=== PATIENT | female | born 1990 | race Hispanic/Latino ===

== ENCOUNTER 2019-04-12 22:42 | Emergency (ER) | payer MEDICAID ==
[2019-04-12] MEDS ORDERED: SODIUM CHLORIDE 0.9% 1000ML 1,000 ML IV ONE (23:16)
[2019-04-12 23:32] LABS: BASOPHILS % (AUTO) 0.7 % (0.0-5.0); EOSINOPHILS % (AUTO) 0.4 % (0.0-8.0); HEMATOCRIT 34.1 % (36-48); LYMPHOCYTES % (AUTO) 27.5 % (21.0-51.0); MEAN CORPUSCULAR HEMOGLOBIN 26.3 pg (27.0-33.0); MEAN CORPUSCULAR HGB CONC 33.3 g/dL (32.0-36.0); MONOCYTES % (AUTO) 4.3 % (3.0-13.0); NEUTROPHILS % (AUTO) 67.1 % (40.0-77.0); PLATELET COUNT (AUTO) 288 K/uL (130-400); RED BLOOD CELL COUNT(AUTO) 4.31 MIL/uL (4.00-5.50); RED CELL DISTRIBUTION WIDTH 15.7 % (11.0-15.5); WHITE BLOOD COUNT (AUTO) 13.9 K/uL (4.8-10.8)
[2019-04-12 23:36] LABS: APPEARANCE,URINE Clear (CLEAR); BILIRUBIN,URINE Negative (NEGATIVE); COLOR,URINE Yellow (YELLOW); GLUCOSE, URINE (UA) Negative (NEGATIVE); KETONES,URINE Negative (NEGATIVE); LEUKOCYTE ESTERASE ,URINE Trace (NEGATIVE); NITRATE,URINE Negative (NEGATIVE); OCCULT BLOOD,URINE Negative (NEGATIVE); PH,URINE 6.5 (5.0-8.0); PROTEIN,URINE Negative (NEGATIVE); UROBILINOGEN,URINE 0.2 mg/dL (0.2-1.0)
[2019-04-12 23:48] LABS: CREATININE 0.6 mg/dL (0.5-1.5); POTASSIUM 4.4 mmol/L (3.5-5.1)
[2019-04-12 23:53] LABS: RBC,URINE 0-1 /HPF (0-1)
[2019-04-12 23:54] LABS: BACTERIA,URINE Rare /HPF (None Seen); MUCUS,URINE Few LPF (None Seen); SQUAMOUS EPITHELIAL CELL,UR 0-2 /HPF (0-2)
== END 2019-04-13 00:52 | disposition home or self-care (01) ==
LOC: EDH 22:42
DX: O20.0 Threatened abortion (principal); Z3A.08 8 weeks gestation of pregnancy
CPT/HCPCS: 36415; 76801; 80048; 81001; 84702; 85025; 86900; 86901; 87088; 99285; J7030

== ENCOUNTER 2019-07-20 13:56 | Observation (INO) | payer MEDICAID ==
[2019-07-20 15:29] LABS: APPEARANCE,URINE Clear (CLEAR); BILIRUBIN,URINE Negative (NEGATIVE); COLOR,URINE Yellow (YELLOW); GLUCOSE, URINE (UA) Negative (NEGATIVE); KETONES,URINE Negative (NEGATIVE); LEUKOCYTE ESTERASE ,URINE Small (NEGATIVE); NITRATE,URINE Negative (NEGATIVE); OCCULT BLOOD,URINE Negative (NEGATIVE); PROTEIN,URINE Negative (NEGATIVE)
[2019-07-20 15:36] LABS: BACTERIA,URINE Few /HPF (None Seen); MUCUS,URINE Rare LPF (None Seen); RBC,URINE 0-1 /HPF (0-1)
== END 2019-07-20 18:14 | disposition home or self-care (01) ==
LOC: EDH 13:56 → LDH 13:57
PROVIDERS: ADMIT Obstetrics & Gynecology; ATTEND Obstetrics & Gynecology
DX: O46.92 Antepartum hemorrhage, unspecified, second trimester (principal); O24.912 Unspecified diabetes mellitus in pregnancy, second trimester; Z87.891 Personal history of nicotine dependence; Z3A.22 22 weeks gestation of pregnancy
CPT/HCPCS: 76805; 81001; 82948; 99284; G0378 ×3

== ENCOUNTER 2019-11-04 11:35 | Inpatient (IN) | payer MEDICAID ==
[~2019-11-04] VITALS: Ht 165.1 cm; Wt 135.2 kg
[2019-11-04] MEDS: LACTATED RINGERS 1000ML 1,000 ML IV PRN ×3 (12:00→21:51)
[2019-11-04 12:53] LABS: MEAN CORPUSCULAR HEMOGLOBIN 26.3 pg (27.0-33.0); MEAN CORPUSCULAR HGB CONC 32.6 g/dL (32.0-36.0); MEAN CORPUSCULAR VOLUME 80.6 fL (79-99); PLATELET COUNT (AUTO) 250 K/uL (130-400); RED BLOOD CELL COUNT(AUTO) 4.34 MIL/uL (4.00-5.50); RED CELL DISTRIBUTION WIDTH 15.9 % (11.0-15.5); WHITE BLOOD COUNT (AUTO) 11.9 K/uL (4.8-10.8)
[2019-11-04 12:59] LABS: APPEARANCE,URINE Clear (CLEAR); BILIRUBIN,URINE Negative (NEGATIVE); COLOR,URINE Yellow (YELLOW); GLUCOSE, URINE (UA) Negative (NEGATIVE); KETONES,URINE Negative (NEGATIVE); LEUKOCYTE ESTERASE ,URINE Negative (NEGATIVE); NITRATE,URINE Negative (NEGATIVE); OCCULT BLOOD,URINE Negative (NEGATIVE); PROTEIN,URINE Negative (NEGATIVE); UROBILINOGEN,URINE 0.2 mg/dL (0.2-1.0)
[2019-11-04 13:00] LABS: CREATININE 0.8 mg/dL (0.5-1.5); INR 0.89 (0.85-1.15); PARTIAL THROMBOPLASTIN TIME 28.7 SEC (26.3-35.5); PROTHROMBIN TIME 9.7 SEC (9.6-11.6)
[2019-11-04 13:06] LABS: ALBUMIN 2.5 g/dL (3.5-5.0); BILIRUBIN,TOTAL 0.2 mg/dL (0.2-1.0); TOTAL PROTEIN, SERUM 7.5 g/dL (6.0-8.3); URIC ACID 4.2 mg/dL (2.6-7.2)
[2019-11-04] MEDS ORDERED: LACTATED RINGERS 500 ML 500 ML IV PRN (13:15)
[2019-11-04] MEDS ORDERED: MEPERIDINE-PF 50 MG/ML SYG IVP PRN (13:15)
[2019-11-04] MEDS ORDERED: EPHEDRINE SULFATE 50 MG/ML AMPULE IVP PRN (13:15)
[2019-11-04] MEDS ORDERED: NALOXONE HCL 0.4 MG/1 ML ML IV PRN (13:15)
[2019-11-04] MEDS ORDERED: PROMETHAZINE HCL 25 MG/ML 1ML AMPULE IM PRN (13:15)
[2019-11-04] MEDS: DINOPROSTONE 10 MG VAGINAL SUPP VG SCH (18:05)
[2019-11-05] MEDS: LACTATED RINGERS 1000ML 1,000 ML IV PRN (06:12)
[2019-11-05 08:10] LABS: HEPATITIS Bs ANTIGEN SCREEN P Negative (Negative)
[2019-11-05] MEDS ORDERED: LACTATED RINGERS 500 ML 500 ML IV PRN (09:15)
[2019-11-05] MEDS ORDERED: EPHEDRINE SULFATE 50 MG/ML AMPULE IVP PRN (09:15)
[2019-11-05] MEDS ORDERED: ROPIVACAINE 0.2% 100ML VIAL 100 ML EP SCH (09:15)
[2019-11-05] MEDS ORDERED: OXYTOCIN-LR 20 UNITS/1000 ML 1,000 ML IV SCH (11:00)
[2019-11-05] MEDS ORDERED: CALDOLOR 800MG+NS 250ML 250 ML IV PRN (16:15)
[2019-11-05] MEDS ORDERED: CEFAZOLIN SODIUM 1 GM VIAL IVP PRN (16:15)
[2019-11-05] MEDS ORDERED: CALDOLOR 800MG+NS 250ML 250 ML IV ONE (16:20)
[2019-11-05] MEDS ORDERED: CEFAZOLIN SODIUM 1 GM VIAL ONE (16:20)
[2019-11-05] MEDS ORDERED: DURAMORPH PF1 MG/ML 10ML AMP IV ONE (16:21)
[2019-11-05] MEDS ORDERED: EPINEPHRINE 1 MG/ML AMPULE ONE (16:23)
[2019-11-05] MEDS ORDERED: OXYTOCIN 10 USP UNITS/ML ONE (16:24)
[2019-11-05] MEDS ORDERED: GLYCOPYRROLATE 1 MG/5 ML SYRINGE ONE (16:49)
[2019-11-05] MEDS ORDERED: ONDANSETRON HCL 4 MG/2 ML VIAL ONE (16:57)
[2019-11-05] MEDS ORDERED: MEPERIDINE-PF 25 MG/ML SYG ONE (17:39)
[2019-11-05] MEDS ORDERED: PROMETHAZINE HCL 25 MG/ML 1ML AMPULE IM PRN (18:45)
[2019-11-05] MEDS ORDERED: MEPERIDINE-PF 75 MG/ML SYG IM PRN (18:45)
[2019-11-05] MEDS ORDERED: DEXTROSE 5 %-0.45 % NACL 1,000 ML IV PRN (18:45)
[2019-11-05] MEDS ORDERED: SODIUM CHLORIDE 0.9% 10 ML VIAL IVP PRN (18:45)
[2019-11-05 18:52] VITALS: BP 125/64
[2019-11-05 19:00] VITALS: BP 120/67
--- NOTE | 2019-11-05 19:00 | NUR ---
Patient received; Patient received in her room report given by Lloyd Valentino RN. She has an IV of LR with 20 units Pitocin infusing well at 150 ml/hour, Bo Catheter patent flowing clear yellow urine patent. Fundus firm at the level of umbilicus with scant lochia rubra. Plan of care discussed with patient verbalizes understanding.
[2019-11-05 20:07] VITALS: BP 120/67
[2019-11-05] MEDS ORDERED: INSU100C6 SQ (22:34)
[2019-11-05] MEDS ORDERED: NPH,100V11 SQ ×2 (22:34)
[2019-11-05 23:44] VITALS: BP 131/87
[2019-11-06] MEDS: CALDOLOR 800MG+NS 250ML 250 ML IV SCH ×2 (01:30→09:24)
[2019-11-06 04:35] VITALS: BP 119/64
--- NOTE | 2019-11-06 04:35 | NUR ---
Liza care ; Liza care done with small Lochia rubra. Abdominal Binder applied.
[2019-11-06] MEDS: INSULIN HUMULIN R 100 UNIT/ML 3ML SQ SCH ×5 (06:00→20:24)
--- NOTE | 2019-11-06 06:50 | NUR ---
Bo Catheter ; Bo Catheter taken out patient advice to call for help if needed. She verbalizes understanding.
[2019-11-06 07:11] LABS: HEMATOCRIT 27.8 % (36-48); MEAN CORPUSCULAR HEMOGLOBIN 26.3 pg (27.0-33.0); MEAN CORPUSCULAR HGB CONC 33.1 g/dL (32.0-36.0); MEAN CORPUSCULAR VOLUME 79.4 fL (79-99); PLATELET COUNT (AUTO) 207 K/uL (130-400); RED CELL DISTRIBUTION WIDTH 15.7 % (11.0-15.5); WHITE BLOOD COUNT (AUTO) 11.1 K/uL (4.8-10.8)
--- NOTE | 2019-11-06 07:20 | NUR ---
pericare done, incisional dressing removed, applied abdominal binder, assisted to bedside chair, pt tolerated well. Addendum: 11/06/19 at 0848 by JEEVAN HUTCHISON RN Amended: Links added.
[2019-11-06] MEDS ORDERED: ACETAMINOPHEN EXTRA STRENGTH 500 MG TABLET PO PRN (07:45)
[2019-11-06] MEDS ORDERED: ACETAMINOPHEN-CODEINE 300/30MG TAB PO PRN (07:45)
[2019-11-06] MEDS ORDERED: BISACODYL 10 MG SUPP.RECT RC PRN (07:45)
[2019-11-06] MEDS ORDERED: LANOLIN 30GM OINTMENT TP PRN (07:45)
[2019-11-06] MEDS ORDERED: HYDROCODONE/ACETAMINOPHEN 5/325 MG TAB PO PRN (07:45)
[2019-11-06 07:52] VITALS: BP 87/61
[2019-11-06] MEDS: SIMETHICONE 80 MG TAB.CHEW PO PRN ×2 (09:24→20:25)
[2019-11-06] MEDS: DOCUSATE SODIUM 100 MG CAP PO SCH ×2 (09:24→20:24)
[2019-11-06] MEDS: DIPH,PERTUSS(ACELL),TET VAC/PF 0.5 ML VIAL IM SCH (09:26)
[2019-11-06 12:06] VITALS: BP 90/44
[2019-11-06 16:35] VITALS: BP 102/57
[2019-11-06] MEDS: IBUPROFEN 800 MG TAB PO SCH (17:23)
[2019-11-06 19:41] VITALS: BP 97/55
[2019-11-06 23:27] VITALS: BP 121/67
[2019-11-07] MEDS: IBUPROFEN 800 MG TAB PO SCH ×3 (01:37→15:07)
[2019-11-07] MEDS: DINOPROSTONE 10 MG VAGINAL SUPP VG SCH (01:37)
[2019-11-07 03:19] VITALS: BP 118/66
[2019-11-07] MEDS: DIPH,PERTUSS(ACELL),TET VAC/PF 0.5 ML VIAL IM SCH (05:39)
[2019-11-07] MEDS: INSULIN HUMULIN R 100 UNIT/ML 3ML SQ SCH (05:47)
[2019-11-07 07:58] VITALS: BP 125/66
--- NOTE | 2019-11-07 08:20 | NUR ---
ASSESSMENT DONE AND INCISIONAL CARE REINFORCED. PATIENT HAS HIDDEN STITCH AND NO REDNESS OR DRAINAGE NOTED.
[2019-11-07] MEDS: DOCUSATE SODIUM 100 MG CAP PO SCH (09:03)
[2019-11-07 11:45] VITALS: BP 118/73
[2019-11-07] MEDS ORDERED: FLU VACC QS2019-20 36MOS UP/PF 60 MCG/0.5 ML ML IM ONE (14:40)
--- NOTE | 2019-11-07 15:00 | NUR ---
PATIENT WAS GIVEN DISCHARGE INSTRUCTIONS AND PATIENT INDICATED WANTING INFLUENZA VACCINE. CLEAN VACCINE WITH PHARMACIST AND WAS GIVEN THE OKAY TO VACCINE PATIENT LONG VACCINE IS AVAILABLE. VACCINE AVAILABLE AND EXPIRES ON JANUARY 2020. DISCHARGE INSTRUCTIONS GIVEN AND SCRIPT FOR PAIN MEDICATION GIVEN TO PATIENT AND INSTRUCTED ON FREQUENCY AND DOSAGE. PATIENT INDICATED UNDERSTANDING DISCHARGE INSTRUCTIONS GIVEN.
[2019-11-07] MEDS: SIMETHICONE 80 MG TAB.CHEW PO PRN (15:06)
--- NOTE | 2019-11-07 15:25 | NUR ---
PATIENT WAS DISCHARGED TO SIGNIFICANT OTHER AND HER MOTHER IN STABLE CONDITION. PATIENT CARRIED IN ARMS AND WAS TAKEN VIA W/C CARRYING BABY IN ARMS.
== END 2019-11-07 15:25 | disposition home or self-care (01) | DRG 540 ==
LOC: LDH 11:35 → WSH 11-05 18:51
PROVIDERS: ADMIT Obstetrics & Gynecology; ATTEND Obstetrics & Gynecology
PROC: 3E0234Z Introduction of Serum, Toxoid and Vaccine into Muscle, Percutaneous Approach (ICD-10-PCS; 2019-11-05)
PROC: 3E02340 Introduction of Influenza Vaccine into Muscle, Percutaneous Approach (ICD-10-PCS; 2019-11-05)
PROC: 10D00Z1 Extraction of Products of Conception, Low, Open Approach (ICD-10-PCS; principal; 2019-11-05 16:39)
DX: O24.12 Pre-existing type 2 diabetes mellitus, in childbirth (principal); O99.214 Obesity complicating childbirth; E66.01 Morbid (severe) obesity due to excess calories; O62.2 Other uterine inertia; Z3A.38 38 weeks gestation of pregnancy; Z37.0 Single live birth; Z23 Encounter for immunization; Z79.4 Long term (current) use of insulin
CPT/HCPCS: 36415; 59510; 76819; 80053; 81003; 82948; 84550; 85027; 85384; 85610; 85730; 86592; 86701; 86850; 86900; 86901; 87340; 87390; 90715; A4314; A4344; G0008; G0378; J0171; J0690; J1741; J2175; J2274; J2405; J2550; J2590; J3490; J7120; Q2035